=== PATIENT | male | born 1990 | race Caucasian/White ===

== ENCOUNTER 2018-07-02 00:30 | Emergency (ER) | payer SELFPAY ==
[2018-07-02 00:33] VITALS: BP 102/68; PULSE 77; RESP 16; TEMP 37.1; O2SAT 98; BMI 23.1
--- NOTE | 2018-07-02 00:46 | ED.VISSUMM ---
- ER Visit Summary Date of Service: 07/02/18 Chief Complaint: [] Polysubstance abuse History of Present Illness: The patient is a 27 M patient stated he drank 1-1/2 tall boy beers tonight starting at 7 PM and took a total of 5 Percocets throughout the evening to experience intoxication. He was at home with a friend who reportedly passed out earlier in the paramedics and police arrived at his house. He did not overdose. He was unsure why they brought him in. He denies a history of narcotic addiction. He has no symptoms currently other than feeling tired. Physical Examination: [] Vital signs reviewed General: Well-nourished well-developed Head: Normocephalic atraumatic Eyes: Pupils equal round and reactive to light extraocular movements intact ENT: TMs clear no hemotympanum no trauma Neck: Nontender full range of motion Cardiovascular: Regular rate rhythm no murmurs normal S1-S2 Respiratory: No distress clear to auscultation bilaterally chest nontender Abdomen: Soft nontender nondistended normal bowel sounds no masses Back: Nontender no CVA tenderness Extremities: Nontender active range of motion ?4 extremities no trauma Skin: Normal color no trauma Neuro alert oriented cranial nerves II through XII intact normal strength sensation reflexes Test Results: [] Emergency Department Course and Treatment: [] Monitored in the department. She did receive Narcan by EMS. I do not think he needs lab work or imaging. I do not think he is Tylenol toxic with just 5 tablets. He counseled on not to overdose like that and will try not to take them in the future. Treatment Plan: [] Disposition: [] Impression: [] Polysubstance abuse This note was generated with [employer] dictation software. It may contain incorrect words, spelling, and punctuation that were not noted in review of the chart prior to signing ED Disposition - Plan for ED Patient: Disposition: Home or Assisted Living Chief Complaint: Overdose Instructions: ED Narcotic Abuse Referrals: Isra Contreras DO [NON CLINICAL AFFILIATE] - NOT,DEFINED [Primary Care Provider] -
--- NOTE | 2018-07-02 00:47 | ED.DEP ---
ED Disposition - Plan for ED Patient: Disposition: Home or Assisted Living Chief Complaint: Overdose Instructions: ED Narcotic Abuse Referrals: NOT,DEFINED [Primary Care Provider] - Isra Contrreas DO [NON CLINICAL AFFILIATE] -
[2018-07-02 02:13] VITALS: BP 112/60; PULSE 58; RESP 12; O2SAT 97
--- NOTE | 2018-07-02 02:14 | NURSING ---
PATIENT WAS ABLE TO WALK OUT ON HIS OWN TO HIS GIRLFRIEND'S CAR AFTER DISCHARGE.
== END 2018-07-02 02:14 | disposition home or self-care (01) ==
LOC: ED 01:26
PROVIDERS: Emergency Provider Emergency Medicine
DX: F19.10 Other psychoactive substance abuse, uncomplicated (principal)
CPT/HCPCS: 99284; A4216